=== PATIENT | female | born 1985 | race Asian ===

== ENCOUNTER 2018-07-17 21:40 | Emergency (ER) | payer MEDICAID ==
[~2018-07-17] VITALS: Ht 165.1 cm; Wt 114.0 kg
[2018-07-17 21:44] VITALS: Ht 165.1 cm; Wt 114.0 kg
[2018-07-18 00:13] VITALS: BP 122/83
== END 2018-07-18 00:13 | disposition home or self-care (01) ==
LOC: ED 21:40
DX: T78.40XA Allergy, unspecified, initial encounter (principal); W57.XXXA Bitten or stung by nonvenomous insect and other nonvenomous arthropods, initial encounter